=== PATIENT | male | born 1950 | race Caucasian/White ===

== ENCOUNTER → 2016-10-11 | Day surgery (SDC) | payer BC ==
[~2016-10-11] VITALS: Ht 177.8 cm; Wt 95.5 kg
[~2016-10-11] MED LIST: CLBPO15 TOP; DOXY40CA PO; DPRSCR15 TOP; KETO2SHA5 TOP; LIDOCAINE HCL 2% 2 ML VIAL (20MG/ML) ONE; METR0.7527 EXT; MIDAZOLAM HCL 1 MG/ML 2ML VIAL ONE; ONDANSETRON INJ 2 MG/ML 2 ML VIAL ONE; PROPOFOL IV EMULSION 10 MG/ML 20 ML VIAL IV ONE; SODIUM CHLORIDE 0.9% 500ML 500 ML IV ONE
[2016-10-11 12:38] VITALS: Ht 177.8 cm; Wt 95.5 kg
[2016-10-11 12:43] VITALS: TEMP 36.7
--- NOTE | 2016-10-11 12:56 | Endo History and Physical ---
History & Physical Date of Service: October 11, 2016. Chief Complaint: screening Referring Physician: Dr. Florence History of Present Illness 66 yo CM who presents for screening colonoscopy. Past Surgical History Hx Cardiac Surgery: No Hx Internal Defibrillator: No Hx Pacemaker: No Hx Abdominal Surgery: Yes (APPY) Hx of Implantable Prosthesis: No Hx Post-Op Nausea and Vomiting: No Hx Cancer Surgery: No Hx Thoracic Surgery: No Hx Orthopedic: Yes (RT/LEFT CTR) Hx Urinary Tract Surgery: No Family History None Social History Smoking Status: Former Smoker Hx Substance Use: No Hx Alcohol Use: Yes (OCCASIONALLY) Allergies Coded Allergies: Cefadroxil (Verified Allergy, Unknown, HIVES, 10/11/16) Current Medications Reported Home Medications Medications Dose Route/Sig Max Daily Dose Days Date Category Clobetasol Propionate 45 Appln/15 Gm Oint 1 Appln TOP BID 30 10/10/16 Reported Betamethasone Dipropionat (Betamethasone Dip) 45 Appln/15 Gm Cr 1 Appln TOP BID 30 10/10/16 Reported Nizoral (Ketoconazole (Topical)) 2 % Sha 1 Appln TOP 2XWK 30 10/10/16 Reported Metrogel (Metronidazole (Topical)) 0.75 % Gel 1 Appln EXT DAILY 10/10/16 Reported Oracea (Doxycycline (Rosacea)) 40 Mg Cap 1 Cap PO QAM 30 10/10/16 Reported Vital Signs Weight (Kilograms): 95.45 Height (Feet): 5 Height (Inches): 10 Date Time Temp Pulse Resp B/P Pulse Ox O2 Delivery O2 Flow Rate FiO2 10/11/16 12:43 36.7 72 20 170/78 94 Room Air Physical Exam General Appearance: WD/WN, no apparent distress Respiratory/Chest: Auscultation: breath sounds normal Cardiovascular: Heart Auscultation: RRR Abdomen: Bowel Sounds: normal Inspection & Palpation: soft, non-distended, no tenderness, guarding & rebound Assessment and Plan Assessment: 66 yo CM who presents for screening colonoscopy. Plan: Proceed with colonoscopy.
--- NOTE | 2016-10-11 13:31 | Discharge Instructions ---
Endoscopy Patient Instructions Date / Procedure(s) Performed October 11, 2016. Colonoscopy Allergy Information Coded Allergies: Cefadroxil (Verified Allergy, Unknown, HIVES, 10/11/16) Discharge Date / Findings October 11, 2016. Diverticulosis Medication Instructions OK to resume all medications today as prescribed Reported Home Medications Medications Dose Route/Sig Max Daily Dose Days Date Category Clobetasol Propionate 45 Appln/15 Gm Oint 1 Appln TOP BID 30 10/10/16 Reported Betamethasone Dipropionat (Betamethasone Dip) 45 Appln/15 Gm Cr 1 Appln TOP BID 30 10/10/16 Reported Nizoral (Ketoconazole (Topical)) 2 % Sha 1 Appln TOP 2XWK 30 10/10/16 Reported Metrogel (Metronidazole (Topical)) 0.75 % Gel 1 Appln EXT DAILY 10/10/16 Reported Oracea (Doxycycline (Rosacea)) 40 Mg Cap 1 Cap PO QAM 30 10/10/16 Reported Provider Instructions Activity Restrictions - No exercising or heavy lifting for 24 hours. - Do not drink alcohol the day of the procedure. - Do not drive a car or operate machinery until the day after the procedure. - Do not make any important decisions or sign important papers in 24 hours after the procedure. Following Day: - Return to full activity which may include returning to work/school. Diet Start your diet with liquids and light foods (jello, soup, juice, toast). Then eat your usual diet if not nauseated. Treatment For Common After Affects For mild abdominal pain, bloating, or excessive gas: - Rest - Eat lightly - Lie on right side Follow-Up Information Follow-up with Dr. Florence as scheduled Anesthesia Information What You Should Know You have had a procedure that required some medicine to reduce anxiety and discomfort. This treatment is called moderate sedation. After receiving the treatment, you may be sleepy, but you will be able to breathe on your own. The effects of the treatment may last for several hours. Follow these instructions along with Activity/Diet recommendations noted above: * Do NOT do anything where dizziness or clumsiness would be dangerous. * Rest quietly at home today, then you can be up and about tomorrow. * Have a responsible person stay with you the rest of today. * You may have had an I.V. today. If so, you may take the dressing off later today. Recommendations Call your doctor if: * Trouble breathing * Continuous vomiting for more than 24 hours * Temperature above 101 degrees * Severe abdominal pain or bloating * Pain not relieved by pain medicine ordered * There is increased drainage or redness from any incision * A large amount of rectal bleeding greater than 2-3 tablespoons. (If you had a polyp/s removed or have hemorrhoids, a small amount of blood - from the rectum is to be expected.) * You have any unanswered questions or concerns. IN THE EVENT OF A SERIOUS EMERGENCY, GO TO THE NEAREST EMERGENCY ROOM Your discharge instructions were prepared by provider Michael Miller. Patient Instructions Signature Page Rehan Rice Patient (or Guardian) Signature/Date: I have read and understand the instructions given to me by my caregivers. Caregiver/RN/Doctor Signature/Date: The above-named patient and/or guardian has received patient instructions on this date. + Original Patient Signature Page (only) stays with chart. Please make copy for patient.
--- NOTE | 2016-10-11 13:33 | GI REPORT ---
Procedure Date: 10/11/2016 1:08 PM Procedure: Colonoscopy Indications: Screening for colorectal malignant neoplasm Medicines: Monitored Anesthesia Care Complications: No immediate complications. Estimated Blood Loss: Estimated blood loss: none. Procedure: Pre-Anesthesia Assessment: - Prior to the procedure, a History and Physical was performed, and patient medications and allergies were reviewed. The patient's tolerance of previous anesthesia was also reviewed. The risks and benefits of the procedure and the sedation options and risks were discussed with the patient. All questions were answered, and informed consent was obtained. Prior Anticoagulants: The patient has taken no previous anticoagulant or antiplatelet agents. ASA Grade Assessment: II - A patient with mild systemic disease. After reviewing the risks and benefits, the patient was deemed in satisfactory condition to undergo the procedure. After I obtained informed consent, the scope was passed under direct vision. Throughout the procedure, the patient's blood pressure, pulse, and oxygen saturations were monitored continuously. The scope was introduced through the anus and advanced to the cecum, identified by appendiceal orifice and ileocecal valve. The colonoscopy was performed without difficulty. The patient tolerated the procedure well. The quality of the bowel preparation was good. The ileocecal valve, appendiceal orifice, and rectum were photographed. Findings: Multiple small-mouthed diverticula were found in the sigmoid colon. The exam was otherwise without abnormality. Impression: - Diverticulosis in the sigmoid colon. - The examination was otherwise normal. - No specimens collected. Recommendation: - Resume previous diet. - Continue present medications. - Repeat colonoscopy in 10 years for surveillance. - Return to primary care physician as previously scheduled. Michael Miller, 10/11/2016 1:33:01 PM This report has been signed electronically. Note Initiated On: 10/11/2016 1:08 PM I attest to the content of the Intraoperative Record and orders documented therein, exceptions below
--- NOTE | 2016-10-11 13:41 | Anesthesiology Progress Note ---
Anesthesia Post Op Note Date & Time October 11, 2016 at 13:41 Vital Signs Pain Intensity: 0 Vital Signs Past 12 Hours Date Time Temp Pulse Resp B/P Pulse Ox O2 Delivery O2 Flow Rate FiO2 10/11/16 12:43 36.7 72 20 170/78 94 Room Air Notes Mental Status: alert / awake / arousable, participated in evaluation Pt Amnestic to Procedure: Yes Nausea / Vomiting: adequately controlled Pain: adequately controlled Airway Patency, RR, SpO2: stable & adequate BP & HR: stable & adequate Hydration State: stable & adequate Anesthetic Complications: no major complications apparent
[2016-10-11 13:56] VITALS: BP 120/72; PULSE 64; O2SAT 95
== END | disposition home or self-care (01) ==
LOC: C.GI 11:59
PROVIDERS: ATTEND Internal Medicine
DX: Z12.11 Encounter for screening for malignant neoplasm of colon (principal); K57.32 Diverticulitis of large intestine without perforation or abscess without bleeding; Z68.30 Body mass index [BMI] 30.0-30.9, adult; Z90.89 Acquired absence of other organs; Z87.891 Personal history of nicotine dependence

== ENCOUNTER → 2016-11-07 | Outpatient (CLI) | payer BC, OTHER ==
[~2016-11-07] MED LIST changes: -LIDOCAINE HCL 2% 2 ML VIAL (20MG/ML) ONE; -MIDAZOLAM HCL 1 MG/ML 2ML VIAL ONE; -ONDANSETRON INJ 2 MG/ML 2 ML VIAL ONE; -PROPOFOL IV EMULSION 10 MG/ML 20 ML VIAL IV ONE; -SODIUM CHLORIDE 0.9% 500ML 500 ML IV ONE
[2016-11-07 17:47] LABS: CHOLESTEROL/HDL RATIO 3.9
[2016-11-08 06:49] LABS: ESTIMATED AVERAGE GLUCOSE 114 mg/dl; HA1C FLAG Normal (Normal)
== END | disposition home or self-care (01) ==
LOC: C.LABBFT 10:12
PROVIDERS: ATTEND Physician Assistant Medical
DX: E78.5 Hyperlipidemia, unspecified (principal); R73.01 Impaired fasting glucose

== ENCOUNTER 2023-02-03 13:57 | Observation (INO) ==
--- NOTE | 2023-02-03 14:10 | Emergency Department Note ---
Impression & Plan TIA (transient ischemic attack) ED Provider Note HISTORY OF PRESENT ILLNESS: Patient is a 73-year-old male presenting with strokelike symptoms. Last known well was 1320. He reportedly was driving when he suddenly had right-sided facial droop and complained of right-sided numbness. He pulled off to the side of the road and and then trying to get out of his vehicle was very weak on the right side per family. They state that he was slurring his words. He is not on any anticoagulation. No previous CVA symptoms. Denies any symptoms on arrival to the ER. Family reports he seems to be having difficulties finding words. Patient denies any chest pain or shortness of breath. Denies any recent head injury or chiropractic epilation of his neck. ROS: as above PHYSICAL EXAM: Constitutional: Patient appears in no acute distress. HENT: Head: Normocephalic and atraumatic. Eyes: EOMI, PERRL Mouth/Throat: Mucous membranes moist. Neck: Trachea midline. Neck supple. Cardiovascular: RRR, No murmurs, rubs or gallops. Intact distal pulses. Pulmonary/Chest: No respiratory distress. Breath sounds clear and equal bi laterally. No wheezes or rales. Abdominal: Abdomen soft, no tenderness, rebound or guarding. Musculoskeletal: No edema, tenderness or deformity noted. Skin: Warm and dry. No rash, erythema, pallor or cyanosis Psychiatric: Appropriate mood and affect for situation. Neurological: Alert and keenly responsive. Facies symmetric. Able to raise eyebrows, close eyes, smile, puff mouth, stick out tongue, move tongue left and right and raise palate symmetrically. Able to shrug shoulders. PERRLA. SILT to forehead below eye and at jawline. Can hear soft nose bilaterally. Good finger to nose. Strength 5/5 in bilateral upper and lower extremities. SILT throughout bilateral upper and lower extremities. NIHSS 0. MDM: - Vitals signs showed hypertension. - History obtained via patient. Patient presents with strokelike symptoms. Last known well was 1320. He was driving when he suddenly developed right-sided facial droop and right-sided numbness. He pulled off the road and was getting out of his car when he became flaccid on the right side per family. He states that he was slurring his words. They drove him to the hospital and he is symptom-free on arrival. Denies any chest pain or shortness of breath. He is not on any anticoagulation - Chronic conditions affecting care: HLD - Differential diagnoses include, but are not limited to: CVA; intracranial he morrhage; TIA; ACS; electrolyte abnormality - Order placed for continuous cardiac monitoring. At this time, monitor showed rate of 61 bpm with normal sinus rhythm, per my interpretation. - External medical records reviewed. - EKG reviewed by myself showed normal sinus rhythm. Rate bradycardic at 59 bpm. QTc 396. No acute ischemic changes. - Laboratory workup interpreted by myself showed normal WBC; stable electrolytes - CT head without contrast negative for acute intracranial hemorrhage, per my interpretation. - CXR negative for pneumonia, per my interpretation - CTA head/neck negative for acute pathology. - Discussed case with [facility] teleneurologist, Dr. Kellogg at 1435. He c alled me back at 1528 and reported no TNK will be given. Reports patient is NIH of 0. Recommended MRI and further TIA work-up. - Discussion was had with social work program coordinator about patient's case and need for admission - Hospitalist consulted for admission - Patient admitted to [facility] service for further evaluation and management. 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 Overweight Rosacea Seborrheic dermatitis Sleep apnea Venom-induced anaphylaxis Surgical History History of appendectomy History of cataract surgery Family History Father Myocardial infarction Mother Stroke Denies family history of Ovarian cancer Prostate cancer Breast cancer Colorectal cancer Social History Smoking Status: Never smoker Tobacco Type: Cigarettes Age Started Using Tobacco: 11; Age Quit Using Tobacco: 31; packs per day: 0.5; Second Hand Exposure: Yes (his son will smoke around him at times ); Do You Dip or Chew Tobacco: No; Hx Alcohol Use: Yes Alcohol type: beer and hard liquor Alcohol Intake Frequency: 2-3 x/Week Alcohol Intake Frequency Comment: 2X a week Hx Substance Use: No Preferred Language: Spanish Visual Impairment: No Limitations Hearing Ability: Normal Beliefs That Will Affect Care: None marital status: Current Living Situation: Spouse current occupational status: retired current occupation: used to work for [employer] Feels Safe at Home: Yes Childhood Exposure to Second-Hand Smoke: Yes Diet: regular caffeine: Yes (coffee daily) Dental Care, Regularly: Yes Physical Activity Frequency: Daily Physical Activity Frequency Comment: walking daily Seatbelt Use: always Sunscreen Use: Yes Assistive Devices: Denture - Upper and Glasses Allergies Allergies Allergy/AdvReac Type Severity Reaction Status Date / Time atorvastatin Allergy Intermediate MYALGIA Verified 02/03/23 16:13 cefadroxil Allergy Unknown HIVES Verified 02/03/23 16:13 Home Meds Home Medications Medication Instructions Recorded Confirmed doxycycline monohydrate 40 mg 40 mg PO BID 02/03/23 02/03/23 capsule,immediate - delay release sildenafil 50 mg tablet 50 mg PO DIRECTED 02/03/23 02/03/23 Previous Rx's Medication Instructions Recorded econazole 1 % topical cream 1 applic topical DAILY #30 grams 06/22/20 Results & Data (ED) Vital Signs Vital Signs - 24 hr 02/03/23 13:59 02/03/23 14:08 02/03/23 14:23 Temperature 36.6 C Temperature Source Temporal Artery Scan Pulse Rate 68 66 Pulse Rate [Apical] Pulse Rate from SpO2 Sensor Respiratory Rate 18 Respiratory Effort / Characteristics Non-Labored Spontaneous Respiratory Depth Normal Respiratory Pattern Regular Blood Pressure 163/90 H Blood Pressure [Left Arm] Blood Pressure Mean 114 Blood Pressure Mean [Left Arm] Blood Pressure Position Sitting Pulse Oximetry 96 98 Oxygen Delivery Method Room Air Room Air Sepsis Recent Fever Within 48 Hours No Sepsis New/Unexplained Change in Mental Status No Sepsis Action Taken by Nursing No Action Required 02/03/23 14:23 02/03/23 14:25 02/03/23 14:25 Temperature Temperature Source Pulse Rate Pulse Rate [Apical] 61 Pulse Rate from SpO2 Sensor Respiratory Rate 24 Respiratory Effort / Characteristics Respiratory Depth Respiratory Pattern Blood Pressure Blood Pressure [Left Arm] 160/91 H Blood Pressure Mean Blood Pressure Mean [Left Arm] 114 Blood Pressure Position Pulse Oximetry 98 98 98 Oxygen Delivery Method Room Air Room Air Room Air Sepsis Recent Fever Within 48 Hours Sepsis New/Unexplained Change in Mental Status Sepsis Action Taken by Nursing 02/03/23 14:06 02/03/23 14:20 Temperature Temperature Source Pulse Rate 68 60 Pulse Rate [Apical] Pulse Rate from SpO2 Sensor 67 60 Respiratory Rate 20 18 Respiratory Effort / Characteristics Respiratory Depth Respiratory Pattern Blood Pressure 186/94 H Blood Pressure [Left Arm] Blood Pressure Mean 124 Blood Pressure Mean [Left Arm] Blood Pressure Position Pulse Oximetry 97 99 Oxygen Delivery Method Sepsis Recent Fever Within 48 Hours Sepsis New/Unexplained Change in Mental Status Sepsis Action Taken by Nursing Laboratory Data 02/03/23 14:10 02/03/23 14:10 Lab Results 02/03/23 02/03/23 02/03/23 Range/Units 14:08 14:10 14:10 WBC 8.47 (4.8-10.8) K/ul RBC 5.41 (4.70-6.10) M/uL Hgb 17.1 (14.0-18.0) g/dl POC Hgb (14.0-18.0) g/dl Hct 49.9 (42.0-52.0) % POC Hct (42-52) % MCV 92.2 (80.0-100.0) fL MCH 31.6 (25.0-34.0) pg MCHC 34.3 (32.0-36.0) g/dL RDW Std Deviation 44.2 (36.4-46.3) fL RDW Coeff of Jose Enrique 13.0 (11.5-14.5) % Plt Count 154 (130-400) K/uL MPV 13.2 H (9.4-12.4) fL PT 11.0 (9.0-12.0) Seconds INR 1.0 (0.9-1.1) APTT 27.8 (21.0-31.0) Seconds PTT Ratio 1.0 POC Sodium (135-144) mmol/L Sodium (136-145) mmol/L POC Potassium (3.3-5.0) mmol/L Potassium (3.5-5.1) mmol/L POC Chloride (101-112) mmol/L Chloride (98-107) mmol/L Carbon Dioxide (21-32) mmol/L POC Total CO2 (24-31) mmol/L Anion Gap (3-11) POC Anion Gap (16-25) mmol/L POC BUN (7-18) mg/dl BUN (6-23) mg/dl Creatinine (0.6-1.4) mg/dl POC Creatinine (0.6-1.3) mg/dl Est Cr Clr Drug Dosing Est GFR ( Amer) ml/min Est GFR (Non-Af Amer) ml/min BUN/Creatinine Ratio (10-20) Glucose (70-99(Fasting)) mg/dl POC Glucose 121 H (70-99) mg/dl POC Glucose (other) (70-99) mg/dl Calcium (8.6-10.3) mg/dl POC Ioniz Calcium Em (1.12-1.32) mmol/l Magnesium (1.7-2.4) mg/dl Total Bilirubin (0.2-1.0) mg/dl AST (13-39) U/L ALT (7-52) U/L Alkaline Phosphatase (34-104) U/L Total Protein (6.0-8.3) gm/dl Albumin (3.4-5.0) gm/dl Globulin (2.5-4.0) gm/dl Albumin/Globulin Ratio (0.9-2) 02/03/23 02/03/23 Range/Units 14:10 14:11 WBC (4.8-10.8) K/ul RBC (4.70-6.10) M/uL Hgb (14.0-18.0) g/dl POC Hgb 17.3 (14.0-18.0) g/dl Hct (42.0-52.0) % POC Hct 51 (42-52) % MCV (80.0-100.0) fL MCH (25.0-34.0) pg MCHC (32.0-36.0) g/dL RDW Std Deviation (36.4-46.3) fL RDW Coeff of Jose Enrique (11.5-14.5) % Plt Count (130-400) K/uL MPV (9.4-12.4) fL PT (9.0-12.0) Seconds INR (0.9-1.1) APTT (21.0-31.0) Seconds PTT Ratio POC Sodium 140 (135-144) mmol/L Sodium 137 (136-145) mmol/L POC Potassium 4.3 (3.3-5.0) mmol/L Potassium 4.3 (3.5-5.1) mmol/L POC Chloride 102 (101-112) mmol/L Chloride 103 (98-107) mmol/L Carbon Dioxide 28 (21-32) mmol/L POC Total CO2 27 (24-31) mmol/L Anion Gap 6 (3-11) POC Anion Gap 16.0 (16-25) mmol/L POC BUN 19 H (7-18) mg/dl BUN 18 (6-23) mg/dl Creatinine 0.85 (0.6-1.4) mg/dl POC Creatinine 0.8 (0.6-1.3) mg/dl Est Cr Clr Drug Dosing Not Reportable Est GFR ( Amer) 100.9 ml/min Est GFR (Non-Af Amer) 87.1 ml/min BUN/Creatinine Ratio 21.2 H (10-20) Glucose 116 H (70-99(Fasting)) mg/dl POC Glucose (70-99) mg/dl POC Glucose (other) 116 H (70-99) mg/dl Calcium 9.9 (8.6-10.3) mg/dl POC Ioniz Calcium Em 1.26 (1.12-1.32) mmol/l Magnesium 2.1 (1.7-2.4) mg/dl Total Bilirubin 0.7 (0.2-1.0) mg/dl AST 19 (13-39) U/L ALT 21 (7-52) U/L Alkaline Phosphatase 99 (34-104) U/L Total Protein 7.7 (6.0-8.3) gm/dl Albumin 4.7 (3.4-5.0) gm/dl Globulin 3.0 (2.5-4.0) gm/dl Albumin/Globulin Ratio 1.6 (0.9-2) Administered Medications Discontinued Medications Ioversol (Ioversol 350 Mg 125ml Prefilled Syringe) 120 ml IV ONCE ONE Stop: 02/03/23 14:14 Last Admin: 02/03/23 14:13 Dose: 120 ml Documented By: WHITNEY Imaging Data Radiologist's Impression: Chest X-Ray 02/03/23 14:08 XR chest 1V portable CLINICAL HISTORY: stroke alert TECHNIQUE: Single frontal radiograph of the chest was obtained. Comparison: None available at the time of this dictation. FINDINGS: No lines and tubes are seen. The cardiomediastinal silhouette is normal. Lungs are underinflated but clear. No evidence of pleural effusion or pneumothorax. IMPRESSION: No acute chest disease. ACT 112: Negative or not required by law. Electronically signed by: Paulino Bower M.D. 02/03/2023 2:[address] 02/03/23 14:08 CT angio neck with con, CT angio head w con, CT head/brain wo con CLINICAL HISTORY: CVA sx; right sided weakness TECHNIQUE: Contiguous axial CT images of the head were acquired from the base of the skull to the vertex without intravenous contrast administration. CT angiography of the head and neck was performed following intravenous administration of iodinated contrast. Coronal and sagittal MIPS were obtained from the axial data set and were submitted for review. Automated dose lowering techniques and/or adjustment according to patient size were utilized for this examination. All measurements were calculated based on NASCET criteria. CT DOSE: 1329.04 mGy.cm Comparison: None available at the time of this dictation. FINDINGS: CT head: There is no acute intracranial hemorrhage or evidence of acute territorial infarction. No shift of the midline structures, mass effect, or extra-axial abnormalities are shown. Lungs and soft tissues are unremarkable. CTA Neck: A 3 vessel aortic arch is shown. There is no significant atherosclerotic plaque in the aortic arch or the origins of the innominate, left common carotid, and left subclavian arteries. There is mild calcified atherosclerotic plaque at the bifurcation of the left common carotid artery without hemodynamically significant flow stenosis. There is no dissection present. The right vertebral artery is dominant. CTA Head: The anterior and posterior cerebral circulations are patent. The left vertebral artery terminates as PICA. Otherwise no acute abnormalities are seen. IMPRESSION: 1. No acute intracranial hemorrhage, evidence of acute territorial infarction, or other acute intracranial disease process. 2. No occlusion, hemodynamically significant stenosis, or dissection in the major cervical arteries. 3. No occlusion, hemodynamically significant stenosis, aneurysm, dissection, or arteriovenous malformation in the major intracranial arteries. Assessment of stenosis of the internal carotid arteries is based on NASCET criteria. ACT 112: Negative or not required by law. Electronically signed by: Paulino Bower M.D. 02/03/2023 2:28 PM Head CTA 02/03/23 14:08 CT angio neck with con, CT angio head w con, CT head/brain wo con CLINICAL HISTORY: CVA sx; right sided weakness TECHNIQUE: Contiguous axial CT images of the head were acquired from the base of the skull to the vertex without intravenous contrast administration. CT angiography of the head and neck was performed following intravenous a dministration of iodinated contrast. Coronal and sagittal MIPS were obtained from the axial data set and were submitted for review. Automated dose lowering techniques and/or adjustment according to patient size were utilized for this examination. All measurements were calculated based on NASCET criteria. CT DOSE: 1329.04 mGy.cm Comparison: None available at the time of this dictation. FINDINGS: CT head: There is no acute intracranial hemorrhage or evidence of acute territorial infarction. No shift of the midline structures, mass effect, or extra-axial abnormalities are shown. Lungs and soft tissues are unremarkable. CTA Neck: A 3 vessel aortic arch is shown. There is no significant atherosclerotic plaque in the aortic arch or the origins of the innominate, left common carotid, and left subclavian arteries. There is mild calcified atherosclerotic plaque at the bifurcation of the left common carotid artery without hemodynamically significant flow stenosis. There is no dissection present. The right vertebral artery is dominant. CTA Head: The anterior and posterior cerebral circulations are patent. The left vertebral artery terminates as PICA. Otherwise no acute abnormalities are seen. IMPRESSION: 1. No acute intracranial hemorrhage, evidence of acute territorial infarction, or other acute intracranial disease process. 2. No occlusion, hemodynamically significant stenosis, or dissection in the major cervical arteries. 3. No occlusion, hemodynamically significant stenosis, aneurysm, dissection, or arteriovenous malformation in the major intracranial arteries. Assessment of stenosis of the internal carotid arteries is based on NASCET criteria. ACT 112: Negative or not required by law. Electronically signed by: Paulino Bower M.D. 02/03/2023 2:28 PM Neck CTA 02/03/23 14:08 CT angio neck with con, CT angio head w con, CT head/brain wo con CLINICAL HISTORY: CVA sx; right sided weakness TECHNIQUE: Contiguous axial CT images of the head were acquired from the base of the skull to the vertex without intravenous contrast administration. CT angiography of the head and neck was performed following intravenous administration of iodinated contrast. Coronal and sagittal MIPS were obtained from the axial data set and were submitted for review. Automated dose lowering techniques and/or adjustment according to patient size were utilized for this examination. All measurements were calculated based on NASCET criteria. CT DOSE: 1329.04 mGy.cm Comparison: None available at the time of this dictation. FINDINGS: CT head: There is no acute intracranial hemorrhage or evidence of acute territorial infarction. No shift of the midline structures, mass effect, or extra-axial abnormalities are shown. Lungs and soft tissues are unremarkable. CTA Neck: A 3 vessel aortic arch is shown. There is no significant atherosclerotic plaque in the aortic arch or the origins of the innominate, left common carotid, and left subclavian arteries. There is mild calcified atherosclerotic plaque at the bifurcation of the left common carotid artery without hemodynamically significant flow stenosis. There is no dissection present. The right vertebral artery is dominant. CTA Head: The anterior and posterior cerebral circulations are patent. The left vertebral artery terminates as PICA. Otherwise no acute abnormalities are seen. IMPRESSION: 1. No acute intracranial hemorrhage, evidence of acute territorial infarction, or other acute intracranial disease process. 2. No occlusion, hemodynamically significant stenosis, or dissection in the major cervical arteries. 3. No occlusion, hemodynamically significant stenosis, aneurysm, dissection, or arteriovenous malformation in the major intracranial arteries. Assessment of stenosis of the internal carotid arteries is based on NASCET criteria. ACT 112: Negative or not required by law. Electronically signed by: Paulino Bower M.D. 02/03/2023 2:28 PM Discharge Plan Visit Data Chief Complaint: Neuro Symptoms/Deficit Stated Complaint: RIGHT SIDED NUMBESS,GAIT DISTUBRBANCE,SPEECH ED Provider: Neha Nguyen Discharge Problem: TIA (transient ischemic attack) Forms Stand Alone Forms: My [facility] [employer] Prescriptions Prescriptions: No Action econazole 1 % cream 1 applic topical DAILY Qty: 30 2RF sildenafil 50 mg tablet 50 mg PO DIRECTED doxycycline monohydrate 40 mg Capsule,Ir - Delay Rel,Biphase 40 mg PO BID Referrals Referrals: Hermann Florence MD [Primary Care Provider] -
[2023-02-03] MEDS ORDERED: IOVERSOL 350 MG 125mL Prefilled Syringe IV ONE (14:13)
[2023-02-03 14:20] LABS: Hematocrit (blood only) 49.9 % (42.0-52.0); Hemoglobin 17.1 g/dl (14.0-18.0); Mean Corpuscular Hemoglobin 31.6 pg (25.0-34.0); Mean Corpuscular Hgb Conc 34.3 g/dL (32.0-36.0); Mean Corpuscular Volume 92.2 fL (80.0-100.0); Mean Platelet Volume 13.2 fL (9.4-12.4); Platelet Count 154 K/uL (130-400); RDW Standard Deviation 44.2 fL (36.4-46.3); Red Blood Count 5.41 M/uL (4.70-6.10); White Blood Count 8.47 K/ul (4.8-10.8)
[2023-02-03 14:24] LABS: iSTAT Creatinine 0.8 mg/dl (0.6-1.3); iSTAT Hemoglobin 17.3 g/dl (14.0-18.0); iSTAT Ionized Calcium 1.26 mmol/l (1.12-1.32); iSTAT Potassium 4.3 mmol/L (3.3-5.0)
--- NOTE | 2023-02-03 14:30 | CT Scan Report ---
CT angio neck with con, CT angio head w con, CT head/brain wo con CLINICAL HISTORY: CVA sx; right sided weakness TECHNIQUE: Contiguous axial CT images of the head were acquired from the base of the skull to the varinder krys without intravenous contrast administration. CT angiography of the head and neck was performed f ollowing intravenous administration of iodinated contrast. Coronal and sagittal MIPS were obtained fr om the axial data set and were submitted for review. Automated dose lowering techniques and/or adjus tment according to patient size were utilized for this examination. All measurements were calculated based on NASCET criteria. CT DOSE: 1329.04 mGy.cm Comparison: None available at the time of this dictation. FINDINGS: CT head: There is no acute intracranial hemorrhage or evidence of acute territorial infarction. No sh ift of the midline structures, mass effect, or extra-axial abnormalities are shown. Lungs and soft tissues are unremarkable. CTA Neck: A 3 vessel aortic arch is shown. There is no significant atherosclerotic plaque in the aor tic arch or the origins of the innominate, left common carotid, and left subclavian arteries. There is mild calcified atherosclerotic plaque at the bifurcation of the left common carotid artery without hemodynamically significant flow stenosis. There is no dissection present. The right vertebral arter y is dominant. CTA Head: The anterior and posterior cerebral circulations are patent. The left vertebral artery ter minates as PICA. Otherwise no acute abnormalities are seen. IMPRESSION: 1. No acute intracranial hemorrhage, evidence of acute territorial infarction, or other acute intrac ranial disease process. 2. No occlusion, hemodynamically significant stenosis, or dissection in the major cervical arteries. 3. No occlusion, hemodynamically significant stenosis, aneurysm, dissection, or arteriovenous malfor mation in the major intracranial arteries. Assessment of stenosis of the internal carotid arteries is based on NASCET criteria. ACT 112: Negative or not required by law. Electronically signed by: Paulino Bower M.D. 02/03/2023 2:28 PM
[2023-02-03 14:37] LABS: Partial Thromboplastin Time 27.8 Seconds (21.0-31.0)
--- NOTE | 2023-02-03 14:40 | XRay Report ---
XR chest 1V portable CLINICAL HISTORY: stroke alert TECHNIQUE: Single frontal radiograph of the chest was obtained. Comparison: None available at the time of this dictation. FINDINGS: No lines and tubes are seen. The cardiomediastinal silhouette is normal. Lungs are underinflated but clear. No evidence of pleural effusion or pneumothorax. IMPRESSION: No acute chest disease. ACT 112: Negative or not required by law. Electronically signed by: Paulino Bower M.D. 02/03/2023 2:38 PM
[2023-02-03 14:43] LABS: Alanine Aminotransferase 21 U/L (7-52); Albumin Globulin Ratio 1.6 (0.9-2); Albumin Level 4.7 gm/dl (3.4-5.0); Alkaline Phosphatase 99 U/L (34-104); Anion Gap 6 (3-11); Aspartate Aminotransferase 19 U/L (13-39); BUN Creatinine Ratio 21.2 (10-20); Bilirubin,Total 0.7 mg/dl (0.2-1.0); Blood Urea Nitrogen 18 mg/dl (6-23); Calcium 9.9 mg/dl (8.6-10.3); Carbon Dioxide 28 mmol/L (21-32); Chloride 103 mmol/L (98-107); Est GFR (African American) 100.9 ml/min; Est GFR (Non-African American) 87.1 ml/min; Glucose 116 mg/dl (70-99(Fasting)); Magnesium 2.1 mg/dl (1.7-2.4); Potassium 4.3 mmol/L (3.5-5.1); Sodium 137 mmol/L (136-145); Total Protein 7.7 gm/dl (6.0-8.3)
--- NOTE | 2023-02-03 16:27 | History & Physical Report ---
Date of Service February 03, 2023 Assessment & Plan (1) TIA (transient ischemic attack): Plan: TIA/CVA Right-sided facial droop, weakness with dysarthria acute onset around 1:30 PM while driving with family Creatinine is normal baseline, 0.85 on admission - BSG 116 on admission - Head/neck CTA: No acute occlusion/finding - Chest x-ray, no acute findings - MRI: Pending No TNKase indicated patient had resolution of symptoms by time of ER assessment No antiplatelet load recommended. Started on aspirin 81 mg daily. If ischemic stroke is noted on MRI, can add Plavix for 3 weeks of DAPT Lipids pending, patient had some muscle aches previously on atorvastatin. Notes he is willing to retry this, will try rosuvastatin instead and follow for myalgias. Adjust dose as needed. . Will need outpatient LFT check A1C pending - BP 160s. Permissive HTN pending MRI results. If CVA --> goal 220/110 for 24 hours. If no stroke goal sbp <180. Given acute onset and territorial symptoms would at minimum treat as TIA Permissive hypertension, adequate control at time of admission. Labetalol added for SBP greater than 220. If no CVA on MRI can start losartan for hypertension and decrease BP goal to 180. Echo with bubble study pending Rosacea Outpatient doxycycline monohydrate can be resumed on DC REX CPAP nightly. DVT prophylaxis: Lovenox Disposition: PCU for CVA monitoring, IV antihypertensives as needed CODE STATUS: Full code Diet: Heart healthy (2) Diverticulosis: (3) Dyslipidemia: (4) Sleep apnea: History of Present Illness Primary Care Provider: Hermann Brito MD Finesse is a 73-year-old male with a past medical history of sleep apnea, dyslipidemia, diverticulosis who was driving with last known well around 1:20 PM when he suddenly had right-sided facial droop, right-sided numbness, right-sided weakness, and dysarthria. He was with his family at the time. Was able to tap puller safely to the side of the road. Was admitted to the ER for stroke evaluation Per pt& Was driving and sudden had R face tingling and numbness. Asked him 'what did your stroke feel like.' then sx got worse and pulled off the road. R sided weakness/numbness in R arm and leg and was stumbling, hard time standing .R facial numbness and then started slurring speech. No dizziness. No headcahe. No chest pain, no chest pressure. No syncope/no presyncope. [place] a little better and was able to drive home, but then still weak and stagging after getting home. Due to continued symptoms and slurring 'like drinking but had had no alcohol' then was brought to ER by daughter. Pt reports 1x episode similar to this ~1-2 years ago. Sx only lasted 10 minutes This time sx lasted ~40min-2hrs. Completely gone just by time of arrival to ER. Denies hx of HTN, HLD. Follows w Dr. brito Medical History: Reviewed Medications: Reviewed Surgical History: Reviewed Family history: Reviewed Allergies: Reviewed Social History: No current or former tobacco use. Beer a day some weeks, goes "dry June "with no alcohol for a month every year, and has intermittent periods 3 to 4 days without alcohol and no history of withdrawal or seizures. Low risk Code Status: Full code Allergies Allergy/AdvReac Type Severity Reaction Status Date / Time atorvastatin Allergy Intermediate MYALGIA Verified 02/03/23 16:13 cefadroxil Allergy Unknown HIVES Verified 02/03/23 16:13 Home Medications Medication Instructions Recorded Confirmed Type econazole 1 % topical cream 1 applic topical DAILY #30 grams 06/22/20 02/03/23 Rx doxycycline monohydrate 40 mg 40 mg PO BID 02/03/23 02/03/23 History capsule,immediate - delay release sildenafil 50 mg tablet 50 mg PO DIRECTED 02/03/23 02/03/23 History Past Med/Surg History Medical History Diverticulosis Dyslipidemia Dysplastic nevus Impaired fasting glucose Inhibited sexual excitement Mycosis fungoides Neoplasm of uncertain behavior of skin Overweight Rosacea Seborrheic dermatitis Sleep apnea Venom-induced anaphylaxis Surgical History History of appendectomy 1974 History of cataract surgery B/L Family History Father Myocardial infarction Mother Stroke Denies family history of Ovarian cancer Prostate cancer Breast cancer Colorectal cancer Social History Smoking Status: Never smoker Tobacco Type: Cigarettes Age Started Using Tobacco: 11; Age Quit Using Tobacco: 31; packs per day: 0.5; Second Hand Exposure: Yes (his son will smoke around him at times ); Do You Dip or Chew Tobacco: No; Hx Alcohol Use: Yes Alcohol type: beer and hard liquor Alcohol Intake Frequency: 2-3 x/Week Alcohol Intake Frequency Comment: 2X a week Hx Substance Use: No Preferred Language: Hungarian Visual Impairment: No Limitations Hearing Ability: Normal Beliefs That Will Affect Care: None marital status: Current Living Situation: Spouse current occupational status: retired current occupation: used to work for [employer] [place] Feels Safe at Home: Yes Childhood Exposure to Second-Hand Smoke: Yes Diet: regular caffeine: Yes (coffee daily) Dental Care, Regularly: Yes Physical Activity Frequency: Daily Physical Activity Frequency Comment: walking daily Seatbelt Use: always Sunscreen Use: Yes Assistive Devices: Denture - Upper and Glasses Review of Systems Review of Systems: All systems reviewed & are unremarkable except as noted in HPI & below Physical Exam Physical Exam: General: A&Ox3. NAD. Cooperative. HEENT: Atraumatic, normocephalic. Pulm: CTAB A&P. -wheezes, -rales, -rhonchi. Symmetrical chest rise. No increased work of breathing. No respiratory distress. Cardiac: RRR, -mrg. Radial pulses intact and symmetrical. Abdominal: Nontender, nondistended, soft. BS present. CRANIAL NERVES: II: Pupils equal and reactive, no relative afferent pupillary defect, no VF cuts III, IV, : EOM intact, no gaze preference or deviation, no nystagmus. V: normal sensation in V1, V2, and V3 segments bilaterally VII: no asymmetry, no nasolabial fold flattening VIII: normal hearing to speech IX, X: normal palatal elevation, no uvular deviation XI: 5/5 head turn and 5/5 shoulder shrug bilaterally XII: midline tongue protrusion MOTOR: RUE: 5/5 bell attendant strength, finger flexion/extension, interosseus LUE: 5/5 bell attendant strength, finger flexion/extension, interosseus RLE: 5/5 ankle dorsiflexion/plantarflexion LLE: 5/5 ankle dorsiflexion/plantarflexion REFLEXES: no clonus SENSORY: Normal to touch in upper and lower extremities without deficit or asymmetry Results & Data Results & Data Vital Signs (Past 12 Hours) Vital Signs Temp Pulse Pulse Resp BP BP Pulse Ox 02/03/23 14:20 60 18 186/94 H 99 02/03/23 14:06 68 20 97 02/03/23 14:25 61 24 160/91 H 98 02/03/23 14:25 98 02/03/23 14:23 98 02/03/23 14:23 98 02/03/23 14:08 66 02/03/23 13:59 36.6 C 68 18 163/90 H 96 O2 Del Method 02/03/23 14:20 02/03/23 14:06 02/03/23 14:25 Room Air 02/03/23 14:25 Room Air 02/03/23 14:23 Room Air 02/03/23 14:23 Room Air 02/03/23 14:08 02/03/23 13:59 Room Air PG Care Time/CCT Total # of Minutes Spent Total Time Spent with Patient: Total time spent is greater than 50% in coordination of care (as documented) at patient's floor/unit and/or counseling patient: Coding Level of Care Code 16772 INT INP/OBS CARE 3/75MIN Diagnoses TIA (transient ischemic attack) G45.9 Diverticulosis K57.90 Dyslipidemia E78.5 Sleep apnea G47.30
[2023-02-03] MEDS ORDERED: LABETALOL HCL IV 5 MG/ML 20ML IV PRN (16:42)
--- NOTE | 2023-02-03 16:43 | Magnetic Resonance Report ---
MR brain wo con CLINICAL HISTORY: CVA like sx TECHNIQUE: Multiplanar and multisequence MR images of the brain were obtained without intravenous con trast. Comparison: None available at the time of this dictation. FINDINGS: No abnormal restricted diffusion is identified. Foci of T2 and FLAIR hyperintensity are noted in the paraventricular areas consistent with chronic small vessel ischemic disease. The ventricular system i s normal in appearance. No mass is seen. There is no mass effect or midline shift. There is no eviden ce of acute intraparenchymal hemorrhage. No extra axial fluid collections are seen. The corpus callos um, pituitary gland, and cerebellar tonsils appear grossly unremarkable. Flow voids of the major intracranial arterial vessels are identified. The imaged portions of the para nasal sinuses, mastoid air cells, and orbits are unremarkable. IMPRESSION: No acute abnormality and in particular no evidence of acute infarct. ACT 112: Negative or not required by law. Electronically signed by: Paulino Bower M.D. 02/03/2023 4:41 PM
[2023-02-03] MEDS ORDERED: PHARMACIST DISCHARGE MED REC CONSULT PRN (18:28)
[2023-02-03] MEDS ORDERED: Patient's HEIGHT &/or WEIGHT Needed STA (18:35)
[2023-02-03] MEDS: ASPIRIN 81 MG ECTAB PO SCH (20:39)
[2023-02-04 06:40] LABS: Basophils # (auto) 0.04 K/uL (0.00-0.20); Basophils % (auto) 0.6 %; Eosinophils # (auto) 0.23 K/uL (0.00-0.50); Eosinophils % (auto) 3.2 %; Hematocrit (blood only) 45.3 % (42.0-52.0); Hemoglobin 15.9 g/dl (14.0-18.0); Immature Granulocytes # (auto) 0.02 K/uL (0.01-0.20); Immature Granulocytes % (auto) 0.3 %; Lymphocytes # (auto) 1.79 K/uL (1.20-3.40); Lymphocytes % (auto) 25.1 %; Mean Corpuscular Hgb Conc 35.1 g/dL (32.0-36.0); Mean Corpuscular Volume 91.1 fL (80.0-100.0); Mean Platelet Volume 13.5 fL (9.4-12.4); Monocytes # (auto) 0.81 K/uL (0.11-0.59); Monocytes % (auto) 11.3 %; Neutrophils # (auto) 4.25 K/uL (1.40-6.50); Neutrophils % (auto) 59.5 %; Platelet Count 131 K/uL (130-400); RDW Coefficient of Variation 13.2 % (11.5-14.5); RDW Standard Deviation 44.7 fL (36.4-46.3); Red Blood Count 4.97 M/uL (4.70-6.10); White Blood Count 7.14 K/ul (4.8-10.8)
[2023-02-04 07:24] LABS: BUN Creatinine Ratio 18.1 (10-20); Calcium 8.9 mg/dl (8.6-10.3); Chol HDL Ratio 4.3 (0-5); Creatinine Clr Calc Pharmacy 107.4 ml/min; Est GFR (Non-African American) 93.2 ml/min
--- NOTE | 2023-02-04 07:46 | Hospitalist Progress Note ---
Date of Service February 04, 2023 Assessment & Plan (1) TIA (transient ischemic attack): Plan: TIA/CVA Right-sided facial droop, weakness with dysarthria acute onset around 1:30 PM while driving with family, full resolution Was not candidate for thrombolytic therapy with resolution of symptoms Imaging consisting of CT head, CTA head and neck, and MRI of brain did not show stroke hemorrhage or significant vascular stenosis Lipids are favorable on presentation glucose is high normal A1c pending Started on aspirin 81 mg daily. without imaging discoveries, will recommend Plavix for 3 weeks of DAPT and dx TIA echo to reval for PFO or embolic possibility Rosacea Outpatient doxycycline monohydrate can be resumed on DC REX CPAP nightly. DVT prophylaxis: Lovenox CODE STATUS: Full code (2) Diverticulosis: (3) Dyslipidemia: (4) Sleep apnea: Admission and Anticipated Discharge Date Admission Date: February 03, 2023 Results & Data Results & Data Vital Signs (Past 12 Hours) Vital Signs Temp Pulse Pulse Resp BP Pulse Ox O2 Del Method 02/04/23 03:19 97.9 F 94 H 17 160/83 H 94 Room Air 02/04/23 00:00 98.2 F 62 18 146/74 H 93 Room Air 02/03/23 22:56 59 L 02/03/23 19:47 98.1 F 73 17 169/74 H 95 Room Air PG Care Time/CCT Total # of Minutes Spent Total Time Spent with Patient: Total time spent is greater than 50% in coordination of care (as documented) at patient's floor/unit and/or counseling patient: Coding Diagnoses TIA (transient ischemic attack) G45.9 Diverticulosis K57.90 Dyslipidemia E78.5 Sleep apnea G47.30
[2023-02-04] MEDS: ASPIRIN 81 MG ECTAB PO SCH (08:18)
[2023-02-04] MEDS ORDERED: CLOPIDOGREL BISULFATE 75 MG TAB PO SCH (09:00)
[2023-02-04] MEDS ORDERED: ROSUVASTATIN CALCIUM 10 MG TAB PO SCH (09:00)
[2023-02-04] MEDS ORDERED: ENOXAPARIN INJ 40 MG/0.4 ML SYR SQ SCH (09:00)
[2023-02-04] MEDS ORDERED: STROKE PATIENT DISCHARGE STA (14:13)
--- NOTE | 2023-02-04 17:44 | Discharge Summary ---
Date of Service February 04, 2023 Admission HPI Per Admitting Provider Finesse is a 73-year-old male with a past medical history of sleep apnea, dyslipidemia, diverticulosis who was driving with last known well around 1:20 PM when he suddenly had right-sided facial droop, right-sided numbness, right-sided weakness, and dysarthria. He was with his family at the time. Was able to drum puller safely to the side of the road. Was admitted to the ER for stroke evaluation Per pt& Was driving and sudden had R face tingling and numbness. Asked him 'what did your stroke feel like.' then sx got worse and pulled off the road. R sided weakness/numbness in R arm and leg and was stumbling, hard time standing .R facial numbness and then started slurring speech. No dizziness. No headcahe. No chest pain, no chest pressure. No syncope/no presyncope. [place] a little better and was able to drive home, but then still weak and stagging after getting home. Due to continued symptoms and slurring 'like drinking but had had no alcohol' then was brought to ER by daughter. Pt reports 1x episode similar to this ~1-2 years ago. Sx only lasted 10 minutes This time sx lasted ~40min-2hrs. Completely gone just by time of arrival to ER. Denies hx of HTN, HLD. Follows w Dr. brito Medical History: Reviewed Medications: Reviewed Surgical History: Reviewed Family history: Reviewed Allergies: Reviewed Social History: No current or former tobacco use. Beer a day some weeks, goes "dry June "with no alcohol for a month every year, and has intermittent periods 3 to 4 days without alcohol and no history of withdrawal or seizures. Low risk Code Status: Full code Principal Diagnosis TIA Discharge Exam neurologically is intact no problems with speech and facial asymmetry or peripheral neurological changes Discharge Data Allergies Allergy/AdvReac Type Severity Reaction Status Date / Time atorvastatin Allergy Intermediate MYALGIA Verified 02/03/23 16:13 cefadroxil Allergy Unknown HIVES Verified 02/03/23 16:13 Consultations 02/03/23 15:31 ED Decision to Admit Stat Ordered Studies 02/03/23 14:08 CT angio neck with con Stat CT head/brain wo con Stat CTA head w con [CT angio head w con] Stat 02/03/23 15:26 MRI Brain [MR brain wo con] Stat Hospital Course (1) TIA (transient ischemic attack): TIA/CVA Right-sided facial droop, weakness with dysarthria acute onset around 1:30 PM while driving with family, full resolution Was not candidate for thrombolytic therapy with resolution of symptoms Imaging consisting of CT head, CTA head and neck, and MRI of brain did not show stroke hemorrhage or significant vascular stenosis Lipids are favorable on presentation was started on Crestor therapy given pr evious myalgias with atorvastatin glucose is high normal A1c pending at the time of discharge Started on aspirin 81 mg daily. without imaging discoveries, will recommend Plavix for 3 weeks of DAPT and dx TIA echo negative for PFO or embolic possibility Rosacea Outpatient doxycycline monohydrate can be resumed on DC REX CPAP nightly. CODE STATUS: Full code (2) Diverticulosis: (3) Dyslipidemia: (4) Sleep apnea: Total Time Total Time Spent Total Time Spent (In Minutes): it required greater than 30 minutes to prepare this patient for discharge Discharge Plan Discharge Items Patient Disposition: Home - Self-Care Reason For Visit: CVA/TIA EVAL Discharge Diagnosis: Transient Ischemic Attack with complete resolution Activity: Resume your previous activity Non-emergency contact: Primary Care Provider Call non-emergency contact if: your symptoms worsen Follow-up/Referrals: Hermann Brito MD [Primary Care Provider] - Diet: Regular Addtl Attending Provider Instructions: You did not have a stroke but a Transient Ischemic Attack or TIA Risk Factors for Strok/TIA You can reduce your chances of stroke by working with your medical provider to adopt a healthy lifestyle. Some specific ways to lower your chance of stroke are: Begin taking a baby aspirin a day, additionally take Plavix(clopidogrel) once a day for 3 weeks( RX given) and take Crestor for aty least 6 month or at the advice otherwise by your primary care (Rx also) . If the Crestor causes muscle soreness please discuss this with your doctor before stopping. * If you are a smoker, now is the time to stop smoking cigarettes * If you are diabetic, improve the control of your blood sugars * Avoid excessive amounts of alcohol * Control high blood pressure * Lose weight if you are overweight * Be sure to lead an active lifestyle * Eat a healthy diet low in salt, cholesterol and fat You should know about other risk factors for stroke that you are unable to control. These include: * Age 55 years or older * Male gender * Certain racial groups: , or / * Family History of Stroke, Mini stroke or Heart Attack * Sickle Cell Disease Follow Up: It is important for you to keep your follow up appointments with your medical provider. Who to Call and When: Medical Emergencies: Call 911 immediately if you experience any of the following warning signs and symptoms of Stroke: * Sudden numbness or weakness of the face, arm or leg, especially on one side of the body * Sudden confusion, trouble speaking or understanding * Sudden trouble seeing in one or both eyes * Sudden trouble walking, dizziness, loss of balance or coordination * Sudden severe headache with no cause Do not delay calling 911 if you experience any warning signs or symptoms of a stroke. Delay in seeking medical attention may affect what treatments can be given to you. . Pending Studies at Discharge: No Stand-Alone Forms: [facility] [employer], Smoking Cessation Medications and DC Order Prescriptions: New clopidogrel 75 mg Tablet 75 mg PO QAM Qty: 21 0RF aspirin 81 mg Tablet,Delayed Release (Dr/Ec) 81 mg PO DAILY Qty: 90 3RF rosuvastatin 10 mg Tablet 10 mg PO QAM Qty: 30 5RF Continued econazole 1 % cream 1 applic topical DAILY Qty: 30 2RF sildenafil 50 mg tablet 50 mg PO DIRECTED doxycycline monohydrate 40 mg Capsule,Ir - Delay Rel,Biphase 40 mg PO BID Discharge Orders: Discharge Order (Routine); Ordered 02/04/23 Ordered By: Elio Corona Admission Data Admit Date/Time: 02/03/23 16:30 Attending Provider: Elio Corona Admit Provider: Luis Alberto Coon Primary Care Provider: Hermann Brito Other Providers: Luis Alberto Coon Other Interventions: Discharge Summary Assessment (RN) Last Done: 02/04/23 15:17 Coding Level of Care Code 67982 INP/OBS DISCH >30 MIN Diagnoses TIA (transient ischemic attack) G45.9 Diverticulosis K57.90 Dyslipidemia E78.5 Sleep apnea G47.30
--- NOTE | 2023-02-04 23:32 | XCELERA ---
[id number] [id number]
[2023-02-05 07:39] LABS: Estimated Average Glucose 123 mg/dl; Hemoglobin A1C 5.9 % (4.5-5.6)
--- NOTE | 2023-02-05 21:00 | Electrocardiogram Report ---
Test Reason : Blood Pressure : / mmHG Vent. Rate : 059 BPM Atrial Rate : 059 BPM P-R Int : 184 ms QRS Dur : 088 ms QT Int : 400 ms P-R-T Axes : 047 -18 024 degrees QTc Int : 396 ms Sinus bradycardia Inferior infarct , age undetermined Anterior infarct , age undetermined Abnormal ECG No previous ECGs available Confirmed by Kingsley Rowley ([id number]) on 02/05/2023 9:00:17 PM Referred By: Confirmed By:Kingsley Rowley
--- NOTE | 2023-02-06 10:05 | Pharmacy Report ---
Pharmacist Stroke Counseling - Date of Service February 06, 2023 - Scope: Pharmacy has been consulted to provide medication discharge counseling for this patient admitted with transient ischemic attack as per the Pharmacist Discharge Counseling for Stroke Patients Protocol. - Medications on Discharge: Home Medications Medication Instructions Recorded Confirmed doxycycline monohydrate 40 mg 40 mg PO BID 02/03/23 02/03/23 capsule,immediate - delay release sildenafil 50 mg tablet 50 mg PO DIRECTED 02/03/23 02/03/23 New Rx's Medication Instructions Recorded econazole 1 % topical cream 1 applic topical DAILY #30 grams 06/22/20 aspirin 81 mg tablet,delayed 81 mg PO DAILY #90 tabs 02/04/23 release clopidogrel 75 mg tablet 75 mg PO QAM #21 tabs 02/04/23 rosuvastatin 10 mg tablet 10 mg PO QAM #30 tabs 02/04/23 - Action: The above medications, specifically ones for stroke treatment/prophylaxis, have been reviewed in detail with the patient and/or patient customer counter representative(s) prior to discharge. This includes indication, common adverse reactions, drug interactions, and medication administration. Medication counseling has been employed using the teach-back method to ensure understanding. - Outcome: The patient and/or patient customer counter representative(s) have demonstrated understanding of the medications. Thank you for allowing pharmacy to be involved in the care of this patient. Please call [phone] with any additional questions
== END 2023-02-04 15:48 | disposition home or self-care (01) ==
LOC: 4W 13:57 → ED 13:57 → SUATTDRO 16:30 → 4W 18:01